=== PATIENT | female | born 1955 | race Caucasian/White ===

== ENCOUNTER 2021-09-17 08:55 | Outpatient (CLI) | payer MEDICARE | END 2021-09-17 08:56 | disposition home or self-care (01) | LOC: CSHCT 08:55 | PROVIDERS: ATTEND Family Medicine | DX: Z12.2 Encounter for screening for malignant neoplasm of respiratory organs (principal); Z87.891 Personal history of nicotine dependence | CPT/HCPCS: 71271 ==

== ENCOUNTER 2022-09-13 09:09 | Outpatient (CLI) | payer MEDICARE | END 2022-09-13 09:10 | disposition home or self-care (01) | LOC: CSHMAMMO 09:09 | PROVIDERS: ATTEND Family Medicine | DX: M81.0 Age-related osteoporosis without current pathological fracture (principal); M85.89 Other specified disorders of bone density and structure, multiple sites | CPT/HCPCS: 77080 ==

== ENCOUNTER 2024-07-10 12:48 | Emergency (ER) | payer MEDICARE ==
[~2024-07-10 12:48] MED LIST: Iopamidol 300 61% 100 ML VIAL FS ONE
[2024-07-10] MEDS ORDERED: diphenhydrAMINE 50 MG/ML VIAL ONE (14:05)
[2024-07-10] MEDS ORDERED: Ondansetron PF 4 MG/2 ML Vial ONE (14:05)
[2024-07-10] MEDS ORDERED: Morphine 4 MG/ML VIAL ONE (14:05)
[2024-07-10] MEDS ORDERED: Famotidine/PF 20 mg/2ml Vial ONE (14:06)
[2024-07-10] MEDS ORDERED: methylPREDNISolone Sod Succ 40 MG VIAL ONE (14:06)
[2024-07-10 14:30] LABS: Bilirubin Neg (Negative); Blood, Urine 25 (Negative); Clarity Clear (Clear); Glucose, Urine (Dipstick) Normal (Negative); Ketone, Urine Negative (Negative); Leukocyte Negative (Negative); Nitrite Negative (Negative); Protein, Urine (Dipstick) Negative (Neg-Trace); Urobilinogen Normal mg/dL (Less than 2)
[2024-07-10 14:52] LABS: Bacteria/HPF Rare-Few HPF (None Seen); CAUTI Indications for Culture Pelvic or flank pain; RBC/HPF 0-3 HPF (0-3); WBC/HPF None Seen HPF (0-3)
[2024-07-10 14:54] LABS: Urine Culture Reflex No No
[2024-07-10 14:58] LABS: #Basophils 0.04 10x3/uL (0.0-0.2); #Eosinophils 0.14 10x3/uL (0.0-0.5); #Neutrophils 6.86 10x3/uL (1.5-8.4); %Basophils 0.4 % (0.0-2.0); %Eosinophils 1.4 % (0.0-6.0); %Lymphocytes 21.5 % (18.0-47.0); %Monocytes 7.1 % (0.0-10.0); %Neutrophils 69.3 % (40.0-75.0); Hematocrit 45.4 % (34.9-44.5); Hemoglobin 15.4 g/dL (12.0-15.5); Mean Corpuscular HGB CONC 33.9 g/dL (32.0-36.0); Mean Corpuscular Hemoglobin 31.5 pg (27.0-33.0); Mean Corpuscular Volume 92.8 fL (81.6-98.3); Mean Platelet Volume 10.5 fL (7.4-10.4); Platelet Count 214 10x3/uL (150-450); RBC Distribution Width 13.2 % (11.5-14.5); Red Blood Cell (RBC) Count 4.89 10x6/uL (3.90-5.03); White Blood Cell (WBC) Count 9.9 10x3/uL (3.5-10.5)
[2024-07-10 15:15] LABS: ALT (SGPT) 22 U/L (8-55); AST (SGOT) 22 U/L (5-34); Alkaline Phosphatase 52 U/L (40-110); Anion Gap 14 mmol/L (10-20); BUN (Urea Nitrogen) 15 mg/dL (9.8-20.1); Bilirubin, Total 0.5 mg/dL (0.2-1.2); Calc. Creatinine Clearance 0 mL/min (70-130); Calcium 11.2 mg/dL (7.8-10.44); Carbon Dioxide 23 mmol/L (23-31); Chloride 105 mmol/L (98-107); Estimated GFR 70; Globulin 4.1 g/dL (2.4-3.5); Glucose 82 mg/dL (83-110); Lipase 37 U/L (8-78); Magnesium 1.9 mg/dL (1.6-2.6); Protein, Total 8.1 g/dL (5.8-8.1); Sodium 138 mmol/L (136-145)
[2024-07-10] MEDS ORDERED: Ketorolac Tromethamine 30 MG (1 mL) VIAL ONE (17:56)
== END 2024-07-10 18:09 | disposition home or self-care (01) ==
LOC: CSHERS 12:48
DX: K57.32 Diverticulitis of large intestine without perforation or abscess without bleeding (principal); K21.9 Gastro-esophageal reflux disease without esophagitis; E78.5 Hyperlipidemia, unspecified; Z79.899 Other long term (current) drug therapy
CPT/HCPCS: 74177; 80053; 81001; 83690; 83735; 85025; J1200; J1885; J2272; J2405; J2919; J3490; 96374; 96375; Q9967

== ENCOUNTER 2024-10-03 07:55 | Outpatient (CLI) | payer MEDICARE | END 2024-10-03 07:56 | disposition home or self-care (01) | LOC: CSHMAMMO 07:55 | PROVIDERS: ATTEND Family Medicine | DX: Z78.0 Asymptomatic menopausal state (principal); M85.851 Other specified disorders of bone density and structure, right thigh; M85.852 Other specified disorders of bone density and structure, left thigh | CPT/HCPCS: 77080 ==

== ENCOUNTER 2024-10-03 08:30 | Outpatient (CLI) | payer MEDICARE | END 2024-10-03 08:31 | disposition home or self-care (01) | LOC: CSHCT 08:30 | PROVIDERS: ATTEND Family Medicine | DX: Z12.2 Encounter for screening for malignant neoplasm of respiratory organs (principal); Z87.891 Personal history of nicotine dependence | CPT/HCPCS: 71271 ==

== ENCOUNTER 2025-04-27 09:55 | Emergency (ER) | payer MEDICARE ==
[2025-04-27 10:55] LABS: #Basophils 0.05 10x3/uL (0.0-0.2); #Eosinophils 0.16 10x3/uL (0.0-0.5); #Monocytes 0.50 10x3/uL (0.0-1.1); #Neutrophils 3.35 10x3/uL (1.5-8.4); %Basophils 0.8 % (0.0-2.0); %Eosinophils 2.5 % (0.0-6.0); %Lymphocytes 35.6 % (18.0-47.0); %Monocytes 7.9 % (0.0-10.0); %Neutrophils 52.7 % (40.0-75.0); Hematocrit 44.0 % (34.9-44.5); Hemoglobin 14.2 g/dL (12.0-15.5); Mean Corpuscular Hemoglobin 29.9 pg (27.0-33.0); Mean Corpuscular Volume 92.6 fL (81.6-98.3); Platelet Count 253 10x3/uL (150-450); Red Blood Cell (RBC) Count 4.75 10x6/uL (3.90-5.03); White Blood Cell (WBC) Count 6.35 10x3/uL (3.5-10.5)
[2025-04-27 11:13] LABS: ALT (SGPT) 17 U/L (Less than 34); AST (SGOT) 21 U/L (11-34); Albumin 3.8 g/dL (3.1-4.5); Alkaline Phosphatase 43 U/L (40-110); Anion Gap 10 mmol/L (10-20); BUN (Urea Nitrogen) 15 mg/dL (9.8-20.1); Bilirubin, Total 0.3 mg/dL (0.3-1.2); Calc. Creatinine Clearance 0 mL/min (70-130); Calcium 10.4 mg/dL (7.8-10.44); Carbon Dioxide 29 mmol/L (23-31); Chloride 106 mmol/L (98-107); Globulin 3.6 g/dL (2.4-3.5); Glucose 99 mg/dL (83-110); Lipase 33 U/L (8-78); Potassium 4.0 mmol/L (3.5-5.1); Sodium 141 mmol/L (136-145)
[2025-04-27] MEDS ORDERED: diphenhydrAMINE 50 MG/ML VIAL ONE (12:29)
[2025-04-27] MEDS ORDERED: LevoFLOXacin D5W 500 mg (100 mL) BAG ONE (12:30)
[2025-04-27] MEDS ORDERED: Iopamidol 300 61% 100 ML VIAL FS ONE (12:59)
== END 2025-04-27 13:53 | disposition home or self-care (01) ==
LOC: CSHERS 09:55
DX: K57.32 Diverticulitis of large intestine without perforation or abscess without bleeding (principal); K21.9 Gastro-esophageal reflux disease without esophagitis
CPT/HCPCS: 74177; 80053; 83690; 85025; J1200; J1956; J2270; 96365; 96375; Q9967